=== PATIENT | male | born 1955 | race Caucasian/White ===

== ENCOUNTER → 2018-10-08 | Outpatient (CLI) | payer BC ==
[~2018-10-08] MED LIST: ALBU90OI6 INH; ASPI81EC; ASPI81EC PO; ATEN25 PO; ATOR20 PO; AZIT250 PO; CLOP75; ENOX80I; FERR325; GUAPHELA PO; ISODIN20; LOSA50; SOTO80; SULTRIDS PO; SYMBICORT IH; WARF5 PO; WARF7.5; WARF7.5 PO
[2018-10-08 11:57] LABS: BASOPHILS ABSOLUTE AUTO 0.03 K/mm3 (0.00-0.23); BASOPHILS PERCENT AUTO 1 % (0-2); EOSINOPHILS ABSOLUTE AUTO 0.13 K/mm3 (0.00-0.68); EOSINOPHILS PERCENT AUTO 2 % (0-6); Hematocrit 40.9 % (37.0-53.0); Hemoglobin 13.7 g/dL (13.5-17.5); IMMATURE GRAN ABSOLUTE AUTO 0.03 K/mm3 (0.00-0.10); IMMATURE GRAN PERCENT AUTO 1 % (0-1); LYMPHOCYTES ABSOLUTE AUTO 1.79 K/mm3 (0.84-5.20); LYMPHOCYTES PERCENT AUTO 27 % (21-46); MONOCYTES ABSOLUTE AUTO 0.52 K/mm3 (0.16-1.47); MONOCYTES PERCENT AUTO 8 % (4-13); Mean Corpuscular HGB 28.4 pg (26.0-34.0); Mean Corpuscular HGB Conc 33.5 g/dL (31.5-36.5); Mean Corpuscular Volume 85 fL (80-100); Mean Platelet Volume 9.6 fL (9.1-12.4); NEUTROPHILS ABSOLUTE AUTO 4.15 K/mm3 (1.96-9.15); NEUTROPHILS PERCENT AUTO 62 % (41-73); Platelet Count 228 K/mm3 (150-400); RDW Standard Deviation 39.5 fL (35.1-46.3); Red Blood Cell Count 4.83 M/mm3 (4.30-5.90); White Blood Cell Count 6.65 K/mm3 (4.00-11.30)
[2018-10-08 12:07] LABS: Alanine Aminotransfer (ALT/SGP 54 U/L (12-78); Albumin, Blood 3.8 g/dL (3.4-5.0); Albumin/Globulin Ratio 1.2 (0.8-1.8); Alk Phos 71 U/L (40-126); Anion Gap 14 mmol/L (6-16); Aspartate Aminotrans (AST/SGOT 17 U/L (12-37); Bilirubin, Total 0.3 mg/dL (0.1-1.0); Blood Urea Nitrogen 42 mg/dL (8-24); Bun/Creatinine Ratio 36.2 (12.0-20.0); CO2, Blood 22 mmol/L (21-32); Calcium, Blood 9.1 mg/dL (8.5-10.1); Chloride, Blood 96 mmol/L (98-108); Creatinine, Blood 1.16 mg/dL (0.60-1.20); Globulin, Blood 3.3 g/dL (2.2-4.0); Glomerular Filtration Rate >60 (60-); Glucose, Blood 397 mg/dL (70-99); Potassium, Blood 4.1 mmol/L (3.5-5.5); Sodium, Blood 132 mmol/L (136-145); Total Protein, Blood 7.1 g/dL (6.4-8.2)
== END ==
LOC: LAB EV 11:53 → LAB SHORT 11:53
PROVIDERS: Physician Assistant
DX: R10.32 Left lower quadrant pain (principal)
CPT/HCPCS: 80053; 83690; 85025

== ENCOUNTER 2024-12-05 19:06 | Observation (INO) | payer BC, MEDICARE ==
[~2024-12-05] VITALS: Ht 175.3 cm; Wt 88.8 kg
[2024-12-05 19:34] LABS: BASOPHILS ABSOLUTE AUTO 0.07 K/mm3 (0.00-0.23); BASOPHILS PERCENT AUTO 1 % (0-2); EOSINOPHILS ABSOLUTE AUTO 0.15 K/mm3 (0.00-0.68); EOSINOPHILS PERCENT AUTO 2 % (0-6); Hematocrit 48.1 % (37.0-53.0); Hemoglobin 16.1 g/dL (13.5-17.5); IMMATURE GRAN ABSOLUTE AUTO 0.04 K/mm3 (0.00-0.10); IMMATURE GRAN PERCENT AUTO 1 % (0-1); LYMPHOCYTES ABSOLUTE AUTO 2.08 K/mm3 (0.84-5.20); LYMPHOCYTES PERCENT AUTO 29 % (21-46); MONOCYTES ABSOLUTE AUTO 0.72 K/mm3 (0.16-1.47); MONOCYTES PERCENT AUTO 10 % (4-13); Mean Corpuscular HGB 28.2 pg (26.0-34.0); Mean Corpuscular HGB Conc 33.5 g/dL (31.5-36.5); Mean Corpuscular Volume 84 fL (80-100); Mean Platelet Volume 9.1 fL (9.1-12.4); NEUTROPHILS ABSOLUTE AUTO 4.12 K/mm3 (1.96-9.15); NEUTROPHILS PERCENT AUTO 57 % (41-73); Platelet Count 209 K/mm3 (150-400); RDW Coefficient Variation 13.5 % (11.7-14.2); RDW Standard Deviation 41.5 fL (35.1-46.3); Red Blood Cell Count 5.71 M/mm3 (4.30-5.90); White Blood Cell Count 7.18 K/mm3 (4.00-11.30)
[2024-12-05] MEDS ORDERED: SYMBICORT 16010.2 GM INH (19:40)
[2024-12-05] MEDS ORDERED: GLIP5 PO (19:40)
[2024-12-05] MEDS ORDERED: LIPITOR80 MG PO (19:40)
[2024-12-05] MEDS ORDERED: LISINOPRIL-HCT1 EACH PO (19:41)
[2024-12-05] MEDS ORDERED: JARDIANCE25 MG PO (19:41)
[2024-12-05] MEDS ORDERED: Ketorolac Tromethamine 15mg Vial IV ONE (19:50)
[2024-12-05 19:51] LABS: Albumin, Blood 4.2 g/dL (3.4-5.0); Albumin/Globulin Ratio 1.2 (0.8-1.8); Bilirubin, Total 0.4 mg/dL (0.1-1.0); Bun/Creatinine Ratio 35.2 (12.0-20.0); Calcium, Blood 9.7 mg/dL (8.5-10.1); Creatinine, Blood 1.28 mg/dL (0.60-1.20); Globulin, Blood 3.5 g/dL (2.2-4.0); Potassium, Blood 4.9 mmol/L (3.5-5.5); Total Protein, Blood 7.7 g/dL (6.4-8.2)
[2024-12-05 20:06] LABS: Magnesium, Blood 2.3 mg/dL (1.6-2.4)
[2024-12-05] MEDS ORDERED: FentaNYL Citrate 50 MCG/ML 2 ML Injection IV PRN (22:35)
[2024-12-05] MEDS ORDERED: Nitroglycerin 0.4 MG SUBL SL PRN (22:35)
[2024-12-05] MEDS ORDERED: FLU VACC TS2024-25(6MOS UP)/PF 45 MCG/0.5 ML SYRINGE IM ONE (22:35)
[2024-12-05] MEDS ORDERED: NS 1,000 ML IV ONE ×2 (22:40→23:54)
[2024-12-05] MEDS ORDERED: Ondansetron HCl 2 MG / ML 2ML Vial IV PRN (22:40)
[2024-12-05] MEDS ORDERED: Mag Hydrox/Al Hydrox/Simeth 72 ML,Lidocaine 2% Viscous Soln 36 ML,Atropine/Scopalam/Hyo... PO PRN (22:45)
[2024-12-05] MEDS ORDERED: Enoxaparin 40 MG/0.4 ML SYR SC SCH (23:00)
[2024-12-06] VITALS (13 sets, daily range): BP systolic 108–158; BP diastolic 62–81
[2024-12-06 03:14] LABS: International Normalized Ratio 1.02; Prothrombin Time Results 10.9 Sec (9.7-11.5)
[2024-12-06] MEDS ORDERED: Heparin Sodium,Porcine/0.5 NS 500 ML IV SCH (03:50)
[2024-12-06 05:33] LABS: BASOPHILS ABSOLUTE AUTO 0.06 K/mm3 (0.00-0.23); BASOPHILS PERCENT AUTO 1 % (0-2); EOSINOPHILS ABSOLUTE AUTO 0.11 K/mm3 (0.00-0.68); EOSINOPHILS PERCENT AUTO 2 % (0-6); Hematocrit 43.7 % (37.0-53.0); Hemoglobin 14.5 g/dL (13.5-17.5); IMMATURE GRAN ABSOLUTE AUTO 0.02 K/mm3 (0.00-0.10); IMMATURE GRAN PERCENT AUTO 0 % (0-1); LYMPHOCYTES PERCENT AUTO 29 % (21-46); MONOCYTES ABSOLUTE AUTO 0.55 K/mm3 (0.16-1.47); MONOCYTES PERCENT AUTO 10 % (4-13); Mean Corpuscular HGB Conc 33.2 g/dL (31.5-36.5); Mean Corpuscular Volume 84 fL (80-100); Mean Platelet Volume 9.8 fL (9.1-12.4); NEUTROPHILS ABSOLUTE AUTO 3.35 K/mm3 (1.96-9.15); NEUTROPHILS PERCENT AUTO 58 % (41-73); Platelet Count 201 K/mm3 (150-400); RDW Coefficient Variation 13.7 % (11.7-14.2); RDW Standard Deviation 41.9 fL (35.1-46.3); Red Blood Cell Count 5.18 M/mm3 (4.30-5.90); White Blood Cell Count 5.79 K/mm3 (4.00-11.30)
[2024-12-06 05:59] LABS: Albumin, Blood 3.7 g/dL (3.4-5.0); Albumin/Globulin Ratio 1.3 (0.8-1.8); Bilirubin, Total 0.5 mg/dL (0.1-1.0); Bun/Creatinine Ratio 39.6 (12.0-20.0); Calcium, Blood 8.8 mg/dL (8.5-10.1); Creatinine, Blood 1.06 mg/dL (0.60-1.20); Globulin, Blood 2.9 g/dL (2.2-4.0); Potassium, Blood 3.8 mmol/L (3.5-5.5); Total Protein, Blood 6.6 g/dL (6.4-8.2)
--- NOTE | 2024-12-06 06:14 | NUR ---
ADMIT/SHIFT SUMMARY 0345 RECIEVED PT FROM ED VIA STRETCHER, PT AMBULATED FROM STRETCHER TO BED, GAIT STEADY, ALERT AND ORIENTED X4, FOLLOWS COMMANDS, VSS, AFEBRILE, PIV TO RIGHT FOREARM PATENT WITH NS INFUSING AT 75 ML/HR, 20 G PIV PLACED TO LEFT FOREARM, PATENT AND CAPPED, HEPARIN INFUSIION STARTED AT 0545 AT 18 UNITS/KG/HOUR, PT VOIDS WITHOUT DIFFICULTY, BLE +1-+2 EDEMA, SKIN INTACT, ORIENTED TO ROOM, CALL LIGHT AND BED CONTROLS, SIDE RAILS UP X2 CALL LIGHT IN REACH
[2024-12-06] MEDS ORDERED: Potassium Chl 20MEQ/Water100ML 100 ML IV SCH (06:15)
[2024-12-06] MEDS ORDERED: Aspirin 325 MG Tab PO ONE (06:30)
[2024-12-06] MEDS ORDERED: Clopidogrel Bisulfate 75 MG Tab PO ONE (06:30)
--- NOTE | 2024-12-06 06:37 | NUR ---
UPDATE 619 RECEIVED CALL FROM LAB WITH TROPONIN RESULTS OF 576, 0624 CALLED AND SPOKE WITH MD NOTIFIED OF RESULTS WITH NEW ORDERS RECEIVED FOR CARDIOLOGY CONSULT, ASA AND PLAVIX ORDER
[2024-12-06] MEDS ORDERED: Nitroglycerin 1 INCH/GM PKT TOP SCH (09:40)
[2024-12-06] MEDS ORDERED: NS 250 ML IV ONE (09:50)
[2024-12-06] MEDS ORDERED: Heparin Sodium 1000 Units/ML 10ML MDV ONE (09:50)
[2024-12-06] MEDS ORDERED: NS 1,000 ML IV ONE ×2 (09:50→10:11)
[2024-12-06] MEDS ORDERED: FentaNYL Citrate 50 MCG/ML 2 ML Injection ONE (10:34)
[2024-12-06] MEDS ORDERED: Midazolam HCl 1MG / ML 2ML Vial ONE (10:34)
--- NOTE | 2024-12-06 12:30 | NUR ---
BACK FROM [facility] PT BACK FROM [facility] [facility] AT APPROXIMATELY 1215. PT A&Ox4, CALLS AND COMMUNICATES NEEDS APPROPRIATELY. BP STABLE, SINUS 70's, DENIES CP/PRESSURE. SpO2> 92% RA, DENIES SOB. R GROIN SITE WNL, NO OOZING, BRUISING, OR HEMATOMA. PALPABLE PEDAL PULSES. EDUCATION PROVIDED ON IMPORTANCE OF LYING FLAT. FAMILY AT BEDSIDE.
[2024-12-06] MEDS ORDERED: Albuterol HFA200 ACT/6.7 GM INH INH PRN (12:40)
[2024-12-06] MEDS ORDERED: Mometasone/Formoterol MDI 200/5 mcg 13 GM INH SCH (12:40)
[2024-12-06] MEDS ORDERED: HydroCHLOROthiazide 25 mg Tab PO SCH (14:00)
[2024-12-06] MEDS ORDERED: Lisinopril 20 MG Tab PO SCH (14:00)
--- NOTE | 2024-12-06 14:05 | NUR ---
UPDATE WHEN ASSESSING R GROIN SITE AT APPROXIMATELY 1315 SITE SLIGHTLY FIRM WITH PT REPORTING MILD TENDERNESS WHEN PALPATED. NO OTHER S/S OF BLEEDING. PRESSURE HELD FOR APPROXIMATELY 30 MINUTES. SITE SOFT A THIS TIME, WILL REASSESS.
[2024-12-06] MEDS ORDERED: Nitroglycerin 1 INCH/GM PKT TOP PRN (16:02)
--- NOTE | 2024-12-06 16:32 | NUR ---
SHIFT SUMMARY SEE PREVIOUS NOTES. A&Ox4, CALLS AND COMMUNICATES NEEDS APPROPRIATELY. BP STABLE, SINUS 70's, REPORTS MILD INTERMITTENT CP. SpO2> 92% RA, DENIES SOB. R GROIN SITE RECOVERED, SITE IS SLIGHTLY FIRM AND TENDER UPON INITIAL PALPITATION THEN IS SOFT AND PT DENIES TENDERNESS. DENIES FLANK PAIN, NO BRUISING OR OOZING. NO OTHER EVENTS, WILL REPORT TO ONCOMING RN.
[2024-12-07 04:05] VITALS: BP 121/64
--- NOTE | 2024-12-07 05:48 | NUR ---
SHIFT SUMMARY PATIENT ALERT, ORIENTED x4. ABLE TO MAKE NEEDS KNOWN TO STAFF. BP STABLE. SR ON TELE DURING THE NIGHT. DENIED CHEST PAIN. ON RA WITH SPO2 >90%. ANGIO SITE DRESSING C/D/I, NO HEMATOMA NOTED. PATIENT AMBULATING INTO BATHROOM INDEPENDENTLY. ADEQUATE OUTPUT. NO OTHER CHANGES THIS SHIFT, WILL REPORT TO DAY SHIFT RN.
[2024-12-07 05:49] LABS: BASOPHILS ABSOLUTE AUTO 0.03 K/mm3 (0.00-0.23); BASOPHILS PERCENT AUTO 1 % (0-2); EOSINOPHILS ABSOLUTE AUTO 0.11 K/mm3 (0.00-0.68); EOSINOPHILS PERCENT AUTO 2 % (0-6); Hematocrit 45.7 % (37.0-53.0); Hemoglobin 14.9 g/dL (13.5-17.5); IMMATURE GRAN ABSOLUTE AUTO 0.01 K/mm3 (0.00-0.10); IMMATURE GRAN PERCENT AUTO 0 % (0-1); LYMPHOCYTES ABSOLUTE AUTO 1.25 K/mm3 (0.84-5.20); LYMPHOCYTES PERCENT AUTO 21 % (21-46); MONOCYTES ABSOLUTE AUTO 0.65 K/mm3 (0.16-1.47); MONOCYTES PERCENT AUTO 11 % (4-13); Mean Corpuscular HGB 27.6 pg (26.0-34.0); Mean Corpuscular HGB Conc 32.6 g/dL (31.5-36.5); Mean Corpuscular Volume 85 fL (80-100); Mean Platelet Volume 9.3 fL (9.1-12.4); NEUTROPHILS ABSOLUTE AUTO 3.97 K/mm3 (1.96-9.15); NEUTROPHILS PERCENT AUTO 66 % (41-73); Platelet Count 191 K/mm3 (150-400); RDW Coefficient Variation 13.8 % (11.7-14.2); RDW Standard Deviation 42.4 fL (35.1-46.3); White Blood Cell Count 6.02 K/mm3 (4.00-11.30)
[2024-12-07 06:09] LABS: Albumin, Blood 3.6 g/dL (3.4-5.0); Albumin/Globulin Ratio 1.2 (0.8-1.8); Bilirubin, Total 0.6 mg/dL (0.1-1.0); Bun/Creatinine Ratio 36.3 (12.0-20.0); Calcium, Blood 8.8 mg/dL (8.5-10.1); Creatinine, Blood 1.13 mg/dL (0.60-1.20); Globulin, Blood 2.9 g/dL (2.2-4.0); Potassium, Blood 4.2 mmol/L (3.5-5.5); Total Protein, Blood 6.5 g/dL (6.4-8.2)
[2024-12-07 07:32] VITALS: BP 110/47
--- NOTE | 2024-12-07 07:39 | NUR ---
AM NOTE ASSUMED CARE OF PATIENT AT APPROX 0700. PT ALERT, ORIENTED X4; CALM AND COOPRATIVE WITH CARE. PT UP IND IN ROOM. PT DENIES PAIN, CHEST PAIN/PRESSURE, SOB, NAUSEA, DIZZINESS AND NUMB/TINGLING. RIGHT GROIN ISTE C/D/I; NO HEMATOMA, SLIGHT BRUISING NOTED AT SITE. TELE SINUS 70'S, BP STABLE. SPO2 >90% ON RA, BREATHING EVEN AND UNLABORED, LS CLEAR T/O. ABD SLIGHT DISTENDED, PT STATES NORMAL, SOFT, NONTENDER. TRACE EDEMA NOTED BLE. OTHER VSS. NO OTHER ACUTE CHANGES. WILL CONTINUE TO MONITOR.
[2024-12-07] MEDS ORDERED: Clopidogrel Bisulfate 75 MG Tab PO SCH (09:00)
[2024-12-07] MEDS ORDERED: Empagliflozin 25 MG TAB PO SCH (09:00)
[2024-12-07] MEDS ORDERED: Metoprolol Succinate 25 MG TABCR PO SCH (09:00)
[2024-12-07] MEDS ORDERED: Apixaban 5 MG Tab PO SCH (09:00)
[2024-12-07] MEDS ORDERED: Atorvastatin 40 MG Tab PO SCH (09:00)
[2024-12-07] MEDS ORDERED: Isosorbide Mononitrate 30 MG TABCR PO SCH (09:00)
[2024-12-07] MEDS ORDERED: Aspirin 325 MG Tab PO SCH (09:00)
[2024-12-07 09:51] VITALS: BP 121/63
[2024-12-07 11:34] VITALS: BP 94/55
[2024-12-07] MEDS ORDERED: ELIQUIS5 M2 PO (13:36)
[2024-12-07] MEDS ORDERED: CLOP75 PO (13:37)
[2024-12-07] MEDS ORDERED: TOPROL XL25 MG PO (13:38)
[2024-12-07] MEDS ORDERED: Isosorbide Mono30 MG PO (13:38)
[2024-12-07 14:06] VITALS: BP 105/55
--- NOTE | 2024-12-07 14:13 | NUR ---
DISCHARGE NOTE: PT DISCHARGED TO HOME BY THIS RN. PT WAS GIVEN WRITTEN AND VERBAL DC INSTRUCTIONS. PT DENIES ANY QUESTIONS OR CONCERNS. IVS WERE REMOVED WITH CATHETER INTACT. BELONGINGS WERE COLLECTED AND PT WAS WHEELED OUT BY THIS RN VIA WHEELCHAIR.
== END 2024-12-07 14:15 | disposition home or self-care (01) ==
LOC: ER 19:06 → PCU 19:07 → ERHOLD 19:07 → PCU 12-06 03:41
PROVIDERS: Internal Medicine; Student in an Organized Health Care Education/Training Program; ADMIT Internal Medicine
DX: I21.4 Non-ST elevation (NSTEMI) myocardial infarction (principal); I25.118 Atherosclerotic heart disease of native coronary artery with other forms of angina pectoris; E78.5 Hyperlipidemia, unspecified; J44.9 Chronic obstructive pulmonary disease, unspecified; I48.91 Unspecified atrial fibrillation; K21.9 Gastro-esophageal reflux disease without esophagitis; E11.51 Type 2 diabetes mellitus with diabetic peripheral angiopathy without gangrene; I11.0 Hypertensive heart disease with heart failure; I50.30 Unspecified diastolic (congestive) heart failure; Z79.01 Long term (current) use of anticoagulants; Z79.82 Long term (current) use of aspirin; Z79.84 Long term (current) use of oral hypoglycemic drugs; Z88.2 Allergy status to sulfonamides; Z88.8 Allergy status to other drugs, medicaments and biological substances; Z79.899 Other long term (current) drug therapy; Z95.1 Presence of aortocoronary bypass graft
CPT/HCPCS: 36415; 71046; 76937; 80053; 83735; 83880; 84484; 85025; 85610; 85730; 93005; 93010; 93306; 93459; 94640; 94664; 94760; 96372; 96374; 96375; 96376; 99152; 99153; 99285-25; A9270; C1769; C1894; G0378; J1644; J1650; J1885; J2250; J3010; J3480; J7030; J7050; Q9967

== ENCOUNTER 2024-12-10 17:38 | Inpatient (IN) | payer BC, MEDICARE ==
[~2024-12-10] VITALS: Ht 175.3 cm; Wt 87.3 kg
[~2024-12-10 17:38] MED LIST changes: +CLOP75 PO; +ELIQUIS5 M2 PO; +GLIP5 PO; +Isosorbide Mono30 MG PO; +JARDIANCE25 MG PO; +LIPITOR80 MG PO; +LISINOPRIL-HCT1 EACH PO; +SYMBICORT 16010.2 GM INH; +TOPROL XL25 MG PO
[2024-12-10 18:32] LABS: BASOPHILS ABSOLUTE AUTO 0.05 K/mm3 (0.00-0.23); BASOPHILS PERCENT AUTO 1 % (0-2); EOSINOPHILS PERCENT AUTO 2 % (0-6); Hematocrit 44.3 % (37.0-53.0); Hemoglobin 14.6 g/dL (13.5-17.5); IMMATURE GRAN ABSOLUTE AUTO 0.02 K/mm3 (0.00-0.10); IMMATURE GRAN PERCENT AUTO 0 % (0-1); LYMPHOCYTES ABSOLUTE AUTO 1.05 K/mm3 (0.84-5.20); LYMPHOCYTES PERCENT AUTO 18 % (21-46); MONOCYTES ABSOLUTE AUTO 0.48 K/mm3 (0.16-1.47); MONOCYTES PERCENT AUTO 8 % (4-13); Mean Corpuscular HGB 28.2 pg (26.0-34.0); Mean Corpuscular Volume 86 fL (80-100); Mean Platelet Volume 9.8 fL (9.1-12.4); NEUTROPHILS ABSOLUTE AUTO 4.07 K/mm3 (1.96-9.15); NEUTROPHILS PERCENT AUTO 71 % (41-73); Platelet Count 162 K/mm3 (150-400); RDW Coefficient Variation 13.8 % (11.7-14.2); RDW Standard Deviation 42.9 fL (35.1-46.3); Red Blood Cell Count 5.17 M/mm3 (4.30-5.90); White Blood Cell Count 5.77 K/mm3 (4.00-11.30)
[2024-12-10 19:18] LABS: Albumin, Blood 3.6 g/dL (3.4-5.0); Bilirubin, Total 0.4 mg/dL (0.1-1.0); Bun/Creatinine Ratio 26.5 (12.0-20.0); Calcium, Blood 8.7 mg/dL (8.5-10.1); Creatinine, Blood 1.55 mg/dL (0.60-1.20); Globulin, Blood 3.5 g/dL (2.2-4.0); Potassium, Blood 5.1 mmol/L (3.5-5.5); Total Protein, Blood 7.1 g/dL (6.4-8.2)
[2024-12-10 20:54] LABS: International Normalized Ratio 0.97; Prothrombin Time Results 10.4 Sec (9.7-11.5)
[2024-12-10] MEDS ORDERED: Isosorbide Mononitrate 60 MG TABCR PO ONE (21:35)
[2024-12-10] MEDS ORDERED: AmLODIPine Besylate 5 MG Tab PO ONE (21:35)
[2024-12-10 21:58] LABS: Anti-Xa UFH, PHA Monitoring 1.32 IU/mL
[2024-12-10] MEDS ORDERED: Dose Adjust by Pharmacy XX STA (22:56)
[2024-12-10] MEDS ORDERED: Heparin Sodium 5000 Units/ML 1ML MDV IV ONE (23:00)
[2024-12-10] MEDS ORDERED: Heparin Sodium,Porcine/0.5 NS 500 ML IV SCH (23:00)
[2024-12-11] MEDS ORDERED: Ondansetron HCl 2 MG / ML 2ML Vial IV PRN (00:15)
[2024-12-11] MEDS ORDERED: FLU VACC TS2024-25(6MOS UP)/PF 45 MCG/0.5 ML SYRINGE IM ONE (00:15)
[2024-12-11] MEDS ORDERED: Magnesium Hydroxide Conc 10 ML UDC PO PRN (00:15)
[2024-12-11 03:28] LABS: BASOPHILS ABSOLUTE AUTO 0.05 K/mm3 (0.00-0.23); BASOPHILS PERCENT AUTO 1 % (0-2); EOSINOPHILS ABSOLUTE AUTO 0.11 K/mm3 (0.00-0.68); EOSINOPHILS PERCENT AUTO 2 % (0-6); Hematocrit 41.3 % (37.0-53.0); Hemoglobin 13.3 g/dL (13.5-17.5); IMMATURE GRAN ABSOLUTE AUTO 0.03 K/mm3 (0.00-0.10); IMMATURE GRAN PERCENT AUTO 1 % (0-1); LYMPHOCYTES ABSOLUTE AUTO 1.38 K/mm3 (0.84-5.20); LYMPHOCYTES PERCENT AUTO 25 % (21-46); MONOCYTES ABSOLUTE AUTO 0.57 K/mm3 (0.16-1.47); MONOCYTES PERCENT AUTO 10 % (4-13); Mean Corpuscular HGB Conc 32.2 g/dL (31.5-36.5); Mean Corpuscular Volume 87 fL (80-100); Mean Platelet Volume 9.4 fL (9.1-12.4); NEUTROPHILS PERCENT AUTO 61 % (41-73); Platelet Count 142 K/mm3 (150-400); RDW Standard Deviation 44.2 fL (35.1-46.3); Red Blood Cell Count 4.75 M/mm3 (4.30-5.90); White Blood Cell Count 5.54 K/mm3 (4.00-11.30)
[2024-12-11 07:56] VITALS: BP 128/67
--- NOTE | 2024-12-11 08:18 | NUR ---
NURSING PCU DAYSHIFT: Pt arrived from ER via gurney at approx 0800. Xfer independently to unit bed w/o difficulty. A/O, very pleasant, cooperative w/care. Denies any current pain/discomfort. Skin intact w/o noted breakdown. Tele in place, NSR, no c/o CP/pressure though states it was more significant this admission than prior, SBP 128 prior to meds, no noted edema. L/S cta t/o, denies dyspnea, O2 sat 99% on RA, occ cough producing thick/yellow sputum. Abd SNT, BT+, voiding w/o difficulty per pt. 20g PIV to RH, s/l. No s/s of acute distress at this time. Lab at bedside for draw, will review results when complete. Awaiting rounding from PMD. Resting comfortably with call light in reach, denies any current questions/needs, cont to monitor for changes.
[2024-12-11] MEDS ORDERED: Sennosides 8.6 MG Tab PO PRN (08:30)
[2024-12-11 08:57] LABS: Magnesium, Blood 2.7 mg/dL (1.6-2.4)
[2024-12-11 08:59] LABS: Albumin, Blood 3.7 g/dL (3.4-5.0); Albumin/Globulin Ratio 1.2 (0.8-1.8); Bilirubin, Total 0.5 mg/dL (0.1-1.0); Bun/Creatinine Ratio 35.8 (12.0-20.0); Creatinine, Blood 1.06 mg/dL (0.60-1.20); Globulin, Blood 3.2 g/dL (2.2-4.0); Potassium, Blood 4.4 mmol/L (3.5-5.5); Total Protein, Blood 6.9 g/dL (6.4-8.2)
[2024-12-11] MEDS ORDERED: Apixaban 5 MG Tab PO SCH (09:00)
[2024-12-11] MEDS ORDERED: Metoprolol Succinate 25 MG TABCR PO SCH (09:00)
[2024-12-11] MEDS ORDERED: Sennosides 8.6 MG Tab PO SCH (09:00)
[2024-12-11] MEDS ORDERED: Atorvastatin 40 MG Tab PO SCH (09:00)
[2024-12-11] MEDS ORDERED: AmLODIPine Besylate 5 MG Tab PO SCH (09:00)
[2024-12-11 11:35] VITALS: BP 139/67
[2024-12-11 15:18] VITALS: BP 134/77
--- NOTE | 2024-12-11 17:28 | NUR ---
NURSING PCU DAYSHIFT SUMMARY: Pt has continued to do well t/o the shift. Remains w/o CP/pressure even w/ambulation. Respiratory and cardiac status unchanged. Seen by PMD, plan of care discussed w/pt and spouse, questions answered. Pt currently resting comfortably in bed having supper. Denies any current questions/needs, call light in reach, cont to monitor until rpt is given to NOC RN.
--- NOTE | 2024-12-11 20:11 | NUR ---
ASSUMPTION OF CARE ASSUMED PT'S CARE AT 1900,BEDSIDE REPORT COMPLETED.FAMILY AT BEDSIDE.PLAN OF CARE REVIEWED.PT DENIES PAIN,DENIES NEEDS.CALL LIGHT AND PT'S ITEMS WITHIN REACH.WILL CONTINUE TO MONITOR.
[2024-12-11 20:55] VITALS: BP 112/60
[2024-12-12 00:24] VITALS: BP 117/62
[2024-12-12 03:45] VITALS: BP 119/70
[2024-12-12 03:55] LABS: BASOPHILS ABSOLUTE AUTO 0.05 K/mm3 (0.00-0.23); BASOPHILS PERCENT AUTO 1 % (0-2); EOSINOPHILS ABSOLUTE AUTO 0.14 K/mm3 (0.00-0.68); EOSINOPHILS PERCENT AUTO 2 % (0-6); Hematocrit 42.7 % (37.0-53.0); Hemoglobin 13.9 g/dL (13.5-17.5); IMMATURE GRAN ABSOLUTE AUTO 0.02 K/mm3 (0.00-0.10); IMMATURE GRAN PERCENT AUTO 0 % (0-1); LYMPHOCYTES ABSOLUTE AUTO 1.66 K/mm3 (0.84-5.20); LYMPHOCYTES PERCENT AUTO 29 % (21-46); MONOCYTES ABSOLUTE AUTO 0.56 K/mm3 (0.16-1.47); MONOCYTES PERCENT AUTO 10 % (4-13); Mean Corpuscular HGB 27.8 pg (26.0-34.0); Mean Corpuscular HGB Conc 32.6 g/dL (31.5-36.5); Mean Corpuscular Volume 85 fL (80-100); Mean Platelet Volume 9.3 fL (9.1-12.4); NEUTROPHILS ABSOLUTE AUTO 3.33 K/mm3 (1.96-9.15); NEUTROPHILS PERCENT AUTO 58 % (41-73); Platelet Count 189 K/mm3 (150-400); RDW Coefficient Variation 13.8 % (11.7-14.2); White Blood Cell Count 5.76 K/mm3 (4.00-11.30)
[2024-12-12 04:15] LABS: Albumin, Blood 3.5 g/dL (3.4-5.0); Albumin/Globulin Ratio 1.2 (0.8-1.8); Bilirubin, Total 0.5 mg/dL (0.1-1.0); Bun/Creatinine Ratio 29.8 (12.0-20.0); Calcium, Blood 8.9 mg/dL (8.5-10.1); Creatinine, Blood 1.04 mg/dL (0.60-1.20); Globulin, Blood 2.9 g/dL (2.2-4.0); Potassium, Blood 4.5 mmol/L (3.5-5.5); Total Protein, Blood 6.4 g/dL (6.4-8.2)
--- NOTE | 2024-12-12 06:05 | NUR ---
SHIFT SUMMARY PT SLEPT MOST OF THE NIGHT,NO C/O CHEST PAIN,NO C/O GENERALIZED PAIN.ALL ASSESSMENTS WNL.PT AWAKE AT THIS TIME,WALKING IN ROOM.PT DENIES PAIN,DENIES NEEDS AT THIS TIME.WILL REPORT TO DAYSHIFT NURSE FOR CONTINUITY OF CARE.
[2024-12-12 07:46] VITALS: BP 110/98
[2024-12-12] MEDS ORDERED: Empagliflozin 25 MG TAB PO SCH (09:00)
[2024-12-12 11:51] VITALS: BP 126/68
--- NOTE | 2024-12-12 13:57 | NUR ---
MORNING SUMMARY THE PT IS A&OX4, IND AND WALKS THE UNIT. HE HAS BEEN SR ON TELE, BP STABLE, ON RA W/ SP02>93%. PT W/O ANY COMPLAINTS INCLUDING ANGINA OR CHEST PRESSURE. PT'S HAS BEEN AT BEDISDE AND UPDATED ON CARE. NO ACUTE EVENTS. WAITING FOR DR. ROBERTSON TO PUT IN D/C ORDERS AT THIS TIME. SEE NOTES FOR UPDATES.
[2024-12-12] MEDS ORDERED: NORVASC5 MG PO (14:29)
[2024-12-12] MEDS ORDERED: NITR.4SL SL (14:31)
--- NOTE | 2024-12-12 14:59 | NUR ---
PT DISCHARGED AT ABOUT 1450. ALL QUESTIONS ANSWERED ABOUT DISCHARGE. ALL BELONGINGS SENT WITH THE PT. VS REMAIN STABLE. NO FURTHER NOTES.
[2024-12-12] MEDS ORDERED: Isosorbide Mononitrate 60 MG TABCR PO SCH (18:00)
== END 2024-12-12 15:00 | disposition home or self-care (01) | DRG 281 ==
LOC: ER 17:38 → PCU 12-11 00:11 → ERHOLD 12-11 00:11 → PCU 12-11 00:12
PROVIDERS: Family Medicine; Student in an Organized Health Care Education/Training Program; ADMIT Internal Medicine
DX: I21.4 Non-ST elevation (NSTEMI) myocardial infarction (principal); N17.9 Acute kidney failure, unspecified; I25.10 Atherosclerotic heart disease of native coronary artery without angina pectoris; J44.9 Chronic obstructive pulmonary disease, unspecified; E78.5 Hyperlipidemia, unspecified; I48.91 Unspecified atrial fibrillation; K21.9 Gastro-esophageal reflux disease without esophagitis; E11.22 Type 2 diabetes mellitus with diabetic chronic kidney disease; I12.9 Hypertensive chronic kidney disease with stage 1 through stage 4 chronic kidney disease, or unspecified chronic kidney disease; N18.9 Chronic kidney disease, unspecified; Z79.899 Other long term (current) drug therapy; Z87.891 Personal history of nicotine dependence; Z88.2 Allergy status to sulfonamides; Z88.8 Allergy status to other drugs, medicaments and biological substances; Z95.1 Presence of aortocoronary bypass graft
CPT/HCPCS: 36415; 71045; 80053; 82947; 83735; 83880; 84484; 85025; 85520; 85610; 85730; 93005; 93010; 96374; 99285-25; A9270; J1644